=== PATIENT | male | born 1960 | race Caucasian/White ===

== ENCOUNTER 2021-08-22 06:29 | Observation (INO) ==
--- NOTE | 2021-08-14 14:57 | PAT Medication Instructions ---
Medication Instructions Date of Service August 14, 2021 Home Medications Cream For Knee 1 dose EXT UD meloxicam 7.5 mg tablet 7.5 mg PO DAILY PRN ASK your surgeon for instructions meloxicam 7.5 mg tablet 7.5 mg PO DAILY PRN STOP taking 24 hours before surgery Cream For Knee 1 dose EXT UD Other Notes NOTHING TO EAT OR DRINK AFTER MIDNIGHT. If you have any questions please call us at [phone] or [phone] or [phone] or [phone]
--- NOTE | 2021-08-15 13:12 | Anesthesiology Consultation ---
Date of Service August 15, 2021 Assessment & Plan (1) Encounter for pre-operative examination: - Patient states plan per his discussion with surgeon's office is to stay overnight and if situation were to change regarding COVID 19 levels/OR limitations may consider outpatient joint. Case discussed with Dr. Bradford who advised no additional evaluation or testing needed overall and in review of pre-op EKG and to further review outpatient joint eligibility if requested in future by surgeon and patient. - COVID screening: Per assessment on 08/15/2021: Travel screen negative, no known COVID-19 positive contacts or current COVID-19 related symptoms in past 2 weeks. Patient vaccinated. Surgeon arranging preop COVID testing, scheduled 08/27/2021. Awaiting results. Chart Review Chart Review: Acceptable Risk for Surgery and Patient seen in Pre Admission Testing Teaching & Discussion Pre-Anesthesia Teaching/Discussion Notes: Instructed NPO after midnight before surgery, except medications with 15 cc of water. Medication instructions provided according to the PAT guidelines. History Surgery Operation Date: 08/22/21 10:40 Proposed Procedures p Right Total Knee Arthroplasty - Chip Luther MD s Removal Deep Hardware - Chip Luther MD Height/Weight Height: 5 ft 9 in Weight: 97.4 kg Allergies Allergy/AdvReac Type Severity Reaction Status Date / Time No Known Allergies Allergy Verified 08/14/21 14:04 Medications Home Medications Medication Instructions Recorded Confirmed Last Taken Cream For Knee 1 dose EXT UD 05/23/21 08/14/21 Unknown meloxicam 7.5 mg tablet 7.5 mg PO DAILY PRN 05/23/21 08/14/21 Unknown Past Medical History Medical History Arthritis High cholesterol BORDERLINE/NO MEDS Jaw clicking NO LOCKING Patient denies h/o stroke, seizures, heart attack, heart failure, DM, HTN, blood clots or blood transfusions. Exercise / Class Metabolic Activity II 4-5 Yardwork/Stairs/Walk up hill (denies CP or SOB with 1 FOS) Past Family History Family History Father Family hx of colon cancer Other No family history of adverse response to anesthesia Past Surgical History Surgical History H/O tooth extraction History of colonoscopy History of repair of ACL RT History of surgery on upper extremity RT BICEP TENDON REPAIR History of tonsillectomy Past Anesthesia History No Hx of Anesthesia Complications and No Family Hx of Anesthesia Complications History of PONV No Hx of PONV and No Hx of Motion Sickness Social History Smoking Status: Former smoker tobacco type: cigarettes Do You Dip or Chew Tobacco: No Smoking End Date: 15 years ago Hx Alcohol Use: Yes Alcohol type: beer alcohol intake frequency: a few times a month substance use type: does not use Review of Systems Patient denies chest pain, shortness of breath, dyspnea on exertion, snoring, witnessed apneas, reflux, fever, chills, cough, wheezing, or palpitations. Physical Exam Vital Signs Vitals BP 107/71 P 78 TEMP 97.8 SP02 96% on RA RESP 17 Physical Full cervical extension range of motion without pain Full TMJ range of motion TMD 3 finger breaths Mallampati Score 2 Dentition: intact, implant-right lower side and one cap-left upper back; denies chipped or loose teeth, or bridges Lungs: normal respiratory effort. Clear throughout to auscultation, no adventitious breath sounds Cardiac: regular rate and rhythm, no murmurs noted Carotid arteries: negative bruit bilat Extremities: no distal extremity edema Lab Results Anesthesia Preop Results Results Anesthesia Widget: WBC 5.99 K/uL (4.8-10.8) 08/15/21 Hgb 16.5 g/dL (14.0-18.0) 08/15/21 Hct 47.7 % (42-52) 08/15/21 Plt 244 K/uL (130-400) 08/15/21 Na 139 mmol/L (136-145) 08/15/21 K 4.8 mmol/L (3.5-5.1) 08/15/21 Cl 104 mmol/L (98-107) 08/15/21 CO2 30 mmol/L (21-32) 08/15/21 BUN 15 mg/dl (6-23) 08/15/21 Creat 0.97 mg/dl (0.6-1.4) 08/15/21 Glucose Level 96 mg/dl (70-99(Fasting)) 08/15/21 PT 10.3 Seconds (9.0-12.0) 08/15/21 PTT 29.2 Seconds (21.0-31.0) 08/15/21 INR 1.0 (0.9-1.1) 08/15/21 Urine Color Yellow 08/15/21 Urine Appearance Clear (Clear) 08/15/21 Urine pH 5.5 (4.5-7.5) 08/15/21 Urine Specific [place] 1.021 (1.000-1.030) 08/15/21 Urine Protein Negative (Negative) 08/15/21 Urine Glucose (UA) Negative (Negative) 08/15/21 Urine Ketones Negative (Negative) 08/15/21 Urine Blood Negative (Negative) 08/15/21 Urine Nitrite Negative (Negative) 08/15/21 Urine Bilirubin Negative (Negative) 08/15/21 Urine Urobilinogen Negative (Negative) 08/15/21 Urine Leukocyte Esterase Negative (Negative) 08/15/21 Blood Type A Positive 08/15/21 Antibody Screen NEGATIVE 08/15/21 Testing Electrocardiogram Date: 08/15/21 Poor data quality Rate 84 bpm Low voltage QRS Left anterior fascicular block Nonspecific ST abnormality Left anterior fascicular block now present in comparison to 2006 ECG Chest X-Ray Date: 08/15/21 FINDINGS: No lines and tubes are seen. The cardiomediastinal silhouette is normal. The lungs are clear. No evidence of pleural effusion or pneumothorax. IMPRESSION: No acute chest disease.
--- NOTE | 2021-08-20 07:58 | History & Physical Report ---
Date of Service August 20, 2021 Assessment & Plan (1) Right knee DJD: Plan: Postoperative prescriptions for Percocet and Coumadin will be provided at discharge from the hospital. Anticipate discharge to home with home health services. This will be done under 23-hour observation, unless beds are not available and then he will consider outpatient total joint surgery. The patient has an appointment to see his PCP for medical clearance. PDMP was checked and there are no concerning findings. He is aware of the COVID-19 risks associated with surgery. He is currently asymptomatic of any COVID-19 symptoms. He will obtain nasal swab testing on Friday prior to surgery. He has an appointment with PAT today for preoperative lab work, EKG, and chest x-ray. Followup appointment has been made for September 06 at 11:30 a.m. for staple removal. History of Present Illness Chief Complaint: Right knee pain Primary Care Provider: Fabi Ackerman DO This 61-year-old male presents for his preoperative history and physical. He is scheduled to undergo a right knee total knee arthroplasty with removal of deep hardware on 08/22/2021. The patient has had right knee pain for over 5 years. It has become worse with time. He has tried cortisone injections as well as viscosupplementation injections without improvement. Pain is worse with weightbearing. It is affecting his ADLs. No numbness or tingling. He has frequent night pain. No recent trauma. He continues to operate heavy equipment. Preoperative imaging has been obtained. Allergies Allergy/AdvReac Type Severity Reaction Status Date / Time No Known Allergies Allergy Verified 08/14/21 14:04 Home Medications Medication Instructions Recorded Confirmed Type Cream For Knee 1 dose EXT UD 05/23/21 08/14/21 History meloxicam 7.5 mg tablet 7.5 mg PO DAILY PRN 05/23/21 08/14/21 History Past Med/Surg History Medical History Arthritis High cholesterol BORDERLINE/NO MEDS Jaw clicking NO LOCKING Surgical History H/O tooth extraction History of colonoscopy History of repair of ACL RT History of surgery on upper extremity RT BICEP TENDON REPAIR History of tonsillectomy Family History Father Family hx of colon cancer Other No family history of adverse response to anesthesia Social History (Updated 08/20/21 @ 07:55 by Juancho Wallace PA-C) Smoking Status: Former smoker Second Hand Exposure: No; Hx Alcohol Use: Yes Alcohol type: beer Preferred Language: Upper Sorbian Communication Ability: Effective Patrol Man Required: No Beliefs That Will Affect Care: None marital status: Single Current Living Situation: Family Current Living Situation Comment: MOTHER AND FATHER LIVES WITH PATIENT Feels Safe at Home: Yes Assistive Devices: Glasses Review of Systems Review of Systems: All systems reviewed & are unremarkable except as noted in HPI & below A total of 10 systems were reviewed Physical Exam Physical Exam: Vitals: Height 174.4 cm, weight 98.0 kilograms, BMI 32.2, temperature 36.5, BP 114/80, respirations 16, O2 sat 98% on room air. General: Well-developed, well-nourished middle-aged male in no acute distress. Sitting in a chair. Alert and oriented. Skin: Warm and dry with good turgor. No rashes or lesions. No ecchymosis or erythema. HEENT: Normocephalic, atraumatic. Eyes: PERRLA, EOMI. Nares and oropharynx exams deferred due to COVID precautions. Heart: RRR. No MGR. Lungs: Clear to auscultation bilaterally. No crackles, rhonchi or wheezing. Good air movement. Abdomen: Mildly obese. Bowel sounds present x4, soft, nontender. No organomegaly. No masses. Musculoskeletal: Right knee evaluation reveals no intraarticular effusion. No redness or warmth. Obvious varus deformity. There is some thickening about the knee consistent with osteophytes. Full terminal extension. Flexion to just over 90 degrees. Strength is 5/5 with good quad tone. He has focal pain with palpation over the medial joint line. No lateral joint line discomfort with palpation today. Stable collateral ligaments. No defect in the patellar tendon or quadriceps tendon. He is ambulating with an antalgic gait. Neurologic: Gross sensation is intact across the right leg by soft touch. Peripheral pulses are 2+. Results & Data Results & Data ([facility]) Diagnostic Findings Radiographic imaging previously obtained shows end-stage DJD of the right knee. Varus alignment. Significant medial compartment collapse. There is subluxation of the tibia laterally. Old ACL screws are in the tibia and femur. No evidence of fracture. Code Status & VTE Plan VTE Prophylaxis Plan VTE Prophylaxis will be ordered: Yes
--- NOTE | 2021-08-22 06:23 | History & Physical Bridge Note ---
Date of Service August 22, 2021 History & Physical Bridge Note I have examined the patient, reviewed the History & Physical and in the interval since the performance of the History & Physical I have noted the following changes of clinical significance: consent obtained/site verified/covid screen negative.no changes noted
[~2021-08-22 06:29] MED LIST: LR 500ML BOLUS, THEN 15ML/HR IV SCH; LR 60ML/HR IV SCH; ROPIVACAINE 0.5% HCL/PF 150 MG, BUPIVACAINE 0.75% MPF 20 ML, EPINEPHrine 0.15 MG, Ketor... INFIL SCH; TRANEXAMIC ACID 1,000 MG **IV Pre-op IV SCH; ceFAZolin 2000MG 2,000 MG/15 ML SYR IV SCH
[2021-08-22] MEDS ORDERED: BUPIVACAINE 0.25% 30 ML VIAL ONE (06:35)
[2021-08-22] MEDS ORDERED: BUPIVACAINE 0.5 % 5 MG/1 ML PF 10ML VIAL ONE (06:35)
[2021-08-22] MEDS ORDERED: MIDAZOLAM HCL 1 MG/ML 2ML VIAL ONE (07:12)
[2021-08-22] MEDS ORDERED: PROPOFOL IV EMULSION 10 MG/ML 20 ML VIAL IV ONE (08:32)
[2021-08-22] MEDS ORDERED: LIDOCAINE 2% 2 ML VIAL/AMP(20MG/ML) INFIL ONE (08:32)
[2021-08-22] MEDS ORDERED: ORTHO JOINT ANESTHETIC ONE (08:36)
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
[2021-08-22] MEDS ORDERED: PHENYLEPHRINE 100MCG/ML 5ML SYR ONE (09:43)
[2021-08-22] MEDS ORDERED: ePHEDrine sulfate 50 MG/ML AMP IV PRN (10:47)
[2021-08-22] MEDS ORDERED: fentaNYL citrate 100 MCG/2 ML VIAL IV PRN (10:47)
[2021-08-22] MEDS ORDERED: ATROPINE SULFATE 0.1 MG/ML 10ML SYR IV PRN (10:47)
[2021-08-22] MEDS ORDERED: ONDANSETRON INJ 2 MG/ML 2 ML VIAL IV PRN ×2 (10:47→11:58)
--- NOTE | 2021-08-22 10:51 | Post Operative Brief Note ---
Immediate Post Op Note v1 Date of Surgery August 22, 2021 Pre & Post Diagnosis Operation Date: 08/22/21 08:50 Pre-Op Diagnosis: Right Knee Osteoarthritis Post-Op Diagnosis: Right Knee Osteoarthritis I identified the patient and participated in the time-out.: Yes Procedure Operation Date: 08/22/21 08:50 Actual Procedures p Right Total Knee Arthroplasty with removal of hardware(Right) - Chip Luther MD Surgeon Chip Luther MD [facility] Estimated Blood Loss 75 Findings Consistent with Post-Op Diagnosis
--- NOTE | 2021-08-22 10:56 | Operative Report ---
Post Operative Report Pre & Post Diagnosis Operation Date: 08/22/21 08:50 Pre-Op Diagnosis: Right Knee Osteoarthritis Post-Op Diagnosis: Right Knee Osteoarthritis I identified the patient and participated in the time-out.: Yes Procedure Operation Date: 08/22/21 08:50 Actual Procedures p Right Total Knee Arthroplasty with removal of hardware(Right) - Chip Luther MD Surgeon FEDERICO Luther MD Document Control Supervisor Madison LEAL Estimated Blood Loss 75 Findings Consistent with Post-Op Diagnosis see operative report Specimens see operative report Drains none Complications none Disposition Accompanied Patient To Recovery: Yes Indications This 61-year-old male presented to the office with complaints of intractable right knee pain. He had tried conservative care measures without improvement. He elected to proceed with surgical intervention after being educated about potential risks and outcomes. Preoperative imaging was obtained. Description of Procedure Patient was administered a spinal anesthetic and then taken to the operating room where he was given sedation. He was prepped and draped in the usual sterile fashion. Please see Dr. Luther's operative report for specifics of the procedure. I was present for the entire case from initial patient positioning through final wound closure. Assistance was provided in tissue retraction, hemostasis, trial implant placement, final implant placement, and final wound closure. Patient was taken to the recovery room in satisfactory condition. I attest to the content of the Intraoperative Record and any orders documented therein. Any exceptions are noted below.
--- NOTE | 2021-08-22 11:13 | XRay Report ---
RIGHT KNEE 2 VIEWS History: Right total knee arthroplasty. Degenerative arthritis. Postop. FINDINGS: The patient is status post a right total knee arthroplasty. The hardware is intact. No frac ture or dislocation. Skin suzie are in place. IMPRESSION: Right total knee arthroplasty. No evidence for hardware complication. ACT 112: Negative or not required by law. Electronically signed by: Casper So M.D. 08/22/2021 11:12 AM
--- NOTE | 2021-08-22 11:30 | Progress Notes ---
DATE OF SERVICE: 08/22/2021 SUBJECTIVE: Postop check status post right total knee replacement and removal of hardware. The ivy ent is doing well, is breathing comfortably. Denies chest pain, shortness of breath, fever, chills, nausea, vomiting or headache. OBJECTIVE: Neurovascular check reveals some early movement of his foot and ankle, the spinal is wear ing off. His wound dressing is clean, dry and intact. Calves are nontender. Postoperative x-rays, AP and lateral of the knee looked excellent. ASSESSMENT: Doing well status post right knee replacement. PLAN: At this point, continue postop care pathway. He can be full weightbearing. DVT prophylaxis pe r protocol. Job ID: [id number]
--- NOTE | 2021-08-22 11:30 | Operative Report (OR) ---
DATE OF PROCEDURE: 08/22/2021. SURGEON: Chip Luther MD BODY PAINTER: Juancho Wallace PA-C PREOPERATIVE DIAGNOSIS: Osteoarthritis with flexion varus deformity, retained hardware, right knee. POSTOPERATIVE DIAGNOSIS: Osteoarthritis with flexion varus deformity, retained hardware, right knee. OPERATION PERFORMED: Right knee cemented total knee replacement, removal of hardware x2, femur and tibia. SUMMARY OF IMPLANTS: Size 5 right femur, size 5 mobile bearing tray, size 5 insert 12.5 mm thick posterior cruciate substituting oval dome, 3 peg patella, two bags of Palacos G cement. ESTIMATED BLOOD LOSS: 75 mL. CRYSTALLOID: Per anesthesia. BONE PATHOLOGY: Pending. PERIOPERATIVE SITUATION: Medically cleared male with intractable pain in his knee, has flexion varus deformity. Has a history of having an ACL surgery reconstruction done over 27 years ago. At this point in time, his x-rays reveal end-stage disease, lateral tibial subluxation, tricompartmental osteoarthritis, severe flexion deformity. DESCRIPTION OF PROCEDURE: The patient was appropriately identified, site verified, consent verified. Antibiotics were confirmed as being given. The old incision was opened and then extended proximally. Parapatellar arthrotomy was performed. He had extensive synovitis and extensive osteophytes, this was all resected. The notch was obliterated. Osteophytes resected. The remnant of the ACL and the PCL were resected. Posterior osteophytes were resected. The distal femur was then resected 14 mm. The proximal tibia was then resected 4 mm off the high side and revised two more millimeters. The extension gap was then excellent. The tibia was sized to a 5, the femur to between a 6 and a 5, was measured 6, cut 5. No significant notching occurred. The flexion gap was checked, it was excellent. The posterior capsule was then injected with Orthomix and then the box cut made, the size 5 fit well. The tibia was then broached and reamed to a size 5 and it fit well. The patella tracked well. The patella was then resected leaving 16 mm. A 41 button was then trialed. After holes were made, it tracked well. Orthomix was then injected all about the knee. All trial implants were then removed and the wound irrigated with Betadine and Pulsavac, and then the permanent cemented into position, tibia, femur, and patella in that order. After 12 minutes, the tourniquet was deflated. Minor bleeding points were controlled with electrocautery. There was significant scarring and bursitis medially. This was resected. At one point, this got closer to skin, so at the end of the case this area was resected and repaired. Once the cement cured at 14 minutes, the knee was inspected. No cement removal was required. Some bone wax was used to cover up some of the raw bone. The wound was irrigated with Betadine Pulsavac, the permanent liner then seated. The knee reduced and closed at 40 degrees of flexion using #2-0 Vicryl and stainless steel clips. The area where the resection of the bursa was made and the skin question was closed with one stitch of 2-0 Vicryl and 2 suzie. The wound was then dressed appropriately with Adaptic, 4 x 4 gauze, ABD pads, Webril, and double 6-inch All bandages. EBL again was roughly 75 mL. Crystalloid per anesthesia. Bone pathology pending on bone. DVT prophylaxis per protocol. SUMMARY OF IMPLANTS: Size 5 right posterior cruciate substituting femur, size 5 mobile bearing tray tibia, size 5 x 12.5 mm posterior cruciate substituting insert, oval dome, 3 peg patella, size 41, two bags of Palacos G cement. I tried to call daughter, Blake, at [phone], no answer. Left message. Job ID: [id number] [facility]
[2021-08-22] MEDS ORDERED: NALOXONE HCL 0.4 MG/1 ML VIAL/CARP IV PRN (11:58)
[2021-08-22] MEDS ORDERED: METOCLOPRAMIDE HCL INJ 5 MG/ML 2 ML VIAL IV PRN (11:58)
[2021-08-22] MEDS ORDERED: HYDROmorphone INJ 0.5 MG/0.5 ML SYR IV PRN (11:58)
[2021-08-22] MEDS ORDERED: ALUMINUM/MAGNESIUM SUSP 30 ML UDC PO PRN (11:58)
[2021-08-22] MEDS ORDERED: diphenhydrAMINE 50 MG/ML VIAL IV PRN (11:58)
[2021-08-22] MEDS ORDERED: oxyCODONE HCL IR 5 MG TAB (IMMEDIATE RELEASE) PO PRN (11:58)
[2021-08-22] MEDS ORDERED: MAGNESIUM HYDROXIDE SUSP 30 ML UDC PO PRN (11:58)
[2021-08-22] MEDS ORDERED: TAMSULOSIN HCL 0.4 MG CAP PO PRN (11:58)
[2021-08-22] MEDS ORDERED: bisacodyL 10 MG SUPP PR PRN (11:58)
--- NOTE | 2021-08-22 12:10 | Anesthesiology Progress Note ---
Date of Service August 22, 2021 Anesthesia Post Procedure Vital Signs Vital Signs: Temp Pulse Pulse Resp BP Pulse Ox 08/22/21 11:50 36.6 C 65 21 111/76 95 08/22/21 11:40 36.6 C 62 21 113/74 97 08/22/21 11:30 65 16 110/79 98 08/22/21 11:20 68 22 118/85 100 08/22/21 11:10 69 21 107/81 100 08/22/21 11:00 77 16 98/70 L 98 08/22/21 10:54 36.0 C L 86 21 99/67 L 97 08/22/21 06:48 36.7 C 92 H 18 122/90 97 Pain Intensity Right Knee: Pain Intensity: 0 Transfer of Care Handoff Completed per policy Notes Mental Status: alert / awake / arousable Patient Amnestic to Procedure: Yes Nausea / Vomiting: adequately controlled Pain: adequately controlled Airway Patency, RR, SpO2: stable & adequate BP & HR: stable & adequate Hydration State: stable & adequate Neuraxial Anesthesia: was administered and sensory block is resolving Anesthetic Complications: no major complications apparent and Pt Satisfied with anesthetic care
[2021-08-22] MEDS: SODIUM CHLORIDE 0.9% 1000ML 1,000 ML IV SCH ×2 (13:23→22:09)
[2021-08-22] MEDS: KETOROLAC 30 MG/ML VIAL IV SCH ×2 (13:23→18:36)
[2021-08-22] MEDS: ACETAMINOPHEN 500 MG TAB PO SCH ×2 (14:29→22:54)
[2021-08-22] MEDS: ORTHO WARFARIN NOMOGRAM SCH (14:34)
[2021-08-22] MEDS ORDERED: WARFARIN SOD 5 MG TAB PO ONE (16:00)
[2021-08-22] MEDS: ASCORBIC ACID 500 MG TAB PO SCH (16:45)
[2021-08-22] MEDS: ceFAZolin 2000MG 2,000 MG/15 ML SYR IV SCH (16:47)
[2021-08-22] MEDS: FERROUS GLUCONATE 324 MG TAB PO SCH (16:47)
[2021-08-22] MEDS ORDERED: TRANEXAMIC ACID / 0.7% NACL 1,000 MG/100 ML BAG IV SCH (17:00)
[2021-08-22] MEDS: DOCUSATE SODIUM 100 MG CAP PO SCH (20:17)
[2021-08-22] MEDS ORDERED: SENNA 8.6 MG TAB PO SCH (21:00)
[2021-08-23] MEDS: KETOROLAC 30 MG/ML VIAL IV SCH ×2 (00:55→05:53)
[2021-08-23] MEDS: ceFAZolin 2000MG 2,000 MG/15 ML SYR IV SCH (01:05)
[2021-08-23] MEDS: ACETAMINOPHEN 500 MG TAB PO SCH (05:51)
[2021-08-23] MEDS: ASCORBIC ACID 500 MG TAB PO SCH (07:12)
[2021-08-23] MEDS: FERROUS GLUCONATE 324 MG TAB PO SCH (07:12)
[2021-08-23] MEDS: DOCUSATE SODIUM 100 MG CAP PO SCH (07:12)
--- NOTE | 2021-08-23 07:42 | Progress Notes ---
SUBJECTIVE: Postop check status post right total knee replacement. He is doing well. Denies chest pain, shortness of breath, fever, chills, nausea, vomiting or headach e. OBJECTIVE: Vital signs are stable. He is afebrile. Neurovascular check, femoral sciatic nerve is normal. Wound dressing clean, dry and intact. I advised concerning heel roll to extend his knee better. ASSESSMENT AND PLAN: Doing well. Discharged to home today after PT/OT. Dressing changed by physici an assistant merchandise manager. Coumadin per nomogram. Please make sure he has all his prescriptions. Job ID: [id number]
[2021-08-23] MEDS ORDERED: dexAMETHasone 10 MG in SYRINGE 0 ML IV SCH (08:00)
[2021-08-23 08:10] LABS: Hematocrit (blood only) 36.7 % (42-52); Hemoglobin 12.9 g/dL (14.0-18.0); Mean Corpuscular Hemoglobin 30.4 pg (25-34); Mean Corpuscular Hgb Conc 35.1 g/dL (32-36); Mean Corpuscular Volume 86.4 fL (80-100); Mean Platelet Volume 9.1 fL (7.4-10.4); Platelet Count 247 K/uL (130-400); RDW Coefficient of Variation 12.5 % (11.5-14.5); RDW Standard Deviation 39.5 fL (36.4-46.3); Red Blood Count 4.25 M/uL (4.7-6.1); White Blood Count 12.18 K/uL (4.8-10.8)
[2021-08-23 08:15] LABS: INR 1.1 (0.9-1.1); Prothrombin Time 11.4 Seconds (9.0-12.0)
[2021-08-23] MEDS: ORTHO WARFARIN NOMOGRAM SCH (08:23)
[2021-08-23] MEDS ORDERED: WARFARIN SOD 5 MG TAB PO ONE (08:30)
[2021-08-23 08:34] LABS: BUN Creatinine Ratio 25.6 (10-20); Calcium 7.9 mg/dl (8.5-10.1); Creatinine Clr Calc Pharmacy 95.6 ml/min; Est GFR (Non-African American) 90.6 ml/min; Potassium 3.9 mmol/L (3.5-5.1)
[2021-08-23] MEDS ORDERED: MULTIVITAMIN TAB PO SCH (09:00)
== END 2021-08-23 11:32 | disposition home health service (06) ==
LOC: ASU 06:29 → 3E 06:29

== ENCOUNTER 2022-05-15 06:57 | Observation (INO) ==
--- NOTE | 2022-05-07 10:33 | Anesthesiology Consultation ---
Date of Service May 07, 2022 Assessment & Plan (1) Encounter for pre-operative examination: - pt contacted and he states is not actively on anticoagulation and states warfarin was Rx by surgeon for post-op. - outpatient joint assessment: previously discussed with Dr. Bradford and he advised to further review outpatient joint eligibility if requested in future by surgeon and patient. - medical clearance 04/19/22: "...preop if preop studies are unremarkable then ok to proceed with surgery...ok..." - COVID screening: Per director of group sales on 05/07/2022: Travel screen negative, no known COVID-19 positive contacts or current COVID-19 related symptoms in past 2 weeks. To surgeon's discretion if preop COVID testing is needed. Chart Review Chart Review: Acceptable Risk for Surgery and Patient NOT seen in Pre Admission Testing History Surgery Operation Date: 05/15/22 09:00 Proposed Procedures p Left Total Knee Arthroplasty - Chip Luther MD Height/Weight Height: 5 ft 9 in Weight: 97.522 kg Allergies Allergy/AdvReac Type Severity Reaction Status Date / Time No Known Allergies Allergy Verified 05/07/22 09:18 Medications Home Medications Medication Instructions Recorded Confirmed Last Taken oxycodone-acetaminophen 5 mg-325 2 tab PO Q6H PRN pain #24 tabs 08/22/21 05/07/22 Unknown mg tablet (Percocet) warfarin 2 mg tablet 4 mg PO DAILY #60 tabs 08/22/21 05/07/22 Unknown docusate sodium 100 mg capsule 100 mg PO BID PRN Pain 05/07/22 05/07/22 Unknown Past Medical History Medical History (Updated 05/07/22 @ 10:27 by Opal Hussein PA-C) Arthritis High cholesterol BORDERLINE/NO MEDS Jaw clicking NO LOCKING Past Family History Family History Father Family hx of colon cancer Other No family history of adverse response to anesthesia Past Surgical History Surgical History (Updated 05/07/22 @ 10:27 by Opal Hussein PA-C) H/O tooth extraction History of colonoscopy History of repair of ACL RT History of surgery on upper extremity RT BICEP TENDON REPAIR History of tonsillectomy History of total right knee replacement 08/22/21 SAB at L3 1 attempt + PNB. Social History Smoking Status: Former smoker tobacco type: cigarettes Do You Dip or Chew Tobacco: No Smoking End Date: 20 yrs ago Hx Alcohol Use: Yes Alcohol type: beer alcohol intake frequency: a few times a month Hx Substance Use: No substance use type: does not use Lab Results Anesthesia Preop Results Results Anesthesia Widget: WBC 5.90 K/ul (4.8-10.8) 04/29/22 Hgb 15.9 g/dl (14.0-18.0) 04/29/22 Hct 46.2 % (40.1-51.0) 04/29/22 Plt 241 K/uL (130-400) 04/29/22 Na 138 mmol/L (136-145) 04/29/22 K 4.1 mmol/L (3.5-5.1) 04/29/22 Cl 104 mmol/L (98-107) 04/29/22 CO2 29 mmol/L (21-32) 04/29/22 BUN 21 mg/dl (6-23) 04/29/22 Creat 0.91 mg/dl (0.6-1.4) 04/29/22 Glucose Level 94 mg/dl (70-99(Fasting)) 04/29/22 PT 10.9 Seconds (9.0-12.0) 04/29/22 PTT 29.7 Seconds (21.0-31.0) 04/29/22 INR 1.0 (0.9-1.1) 04/29/22 Urine Color Yellow 04/29/22 Urine Appearance Clear (Clear) 04/29/22 Urine pH 6.0 (4.5-7.5) 04/29/22 Urine Specific [place] 1.023 (1.000-1.030) 04/29/22 Urine Protein Negative (Negative) 04/29/22 Urine Glucose (UA) Negative (Negative) 04/29/22 Urine Ketones Negative (Negative) 04/29/22 Urine Blood Negative (Negative) 04/29/22 Urine Nitrite Negative (Negative) 04/29/22 Urine Bilirubin Negative (Negative) 04/29/22 Urine Urobilinogen Negative (Negative) 04/29/22 Urine Leukocyte Esterase Negative (Negative) 04/29/22 Testing Electrocardiogram Date: 08/20/21 Sinus rhythm, rate 77 bpm Low voltage in limb leads Chest X-Ray Date: 08/15/21 No lines and tubes are seen. The cardiomediastinal silhouette is normal. The lungs are clear. No evidence of pleural effusion or pneumothorax. IMPRESSION: No acute chest disease.
--- NOTE | 2022-05-14 18:22 | History & Physical Bridge Note ---
Date of Service May 14, 2022 History & Physical Bridge Note I have examined the patient, reviewed the History & Physical and in the interval since the performance of the History & Physical I have noted the following changes of clinical significance: no changes noted
[~2022-05-15 06:57] MED LIST changes: +BUPIVACAINE 0.5 % 5 MG/1 ML PF 10ML VIAL ONE; +ROPIVACAINE 0.5% 5 MG/ML 30 ML VIAL ONE
[2022-05-15] MEDS ORDERED: MIDAZOLAM HCL 1 MG/ML 2ML VIAL ONE ×2 (07:58→07:59)
[2022-05-15] MEDS ORDERED: fentaNYL citrate 100 MCG/2 ML VIAL ONE ×2 (07:59→09:42)
[2022-05-15] MEDS ORDERED: ePHEDrine sulfate 50 MG/ML AMP IV PRN (08:18)
[2022-05-15] MEDS ORDERED: ATROPINE SULFATE 0.1 MG/ML 10ML SYR IV PRN (08:18)
[2022-05-15] MEDS ORDERED: ONDANSETRON INJ 2 MG/ML 2 ML VIAL IV PRN ×2 (08:18→12:52)
--- NOTE | 2022-05-15 08:46 | History & Physical Bridge Note ---
Date of Service May 15, 2022 History & Physical Bridge Note I have examined the patient, reviewed the History & Physical and in the interval since the performance of the History & Physical I have noted the following changes of clinical significance:consent obtained. no changes noted
[2022-05-15] MEDS ORDERED: ORTHO JOINT ANESTHETIC ONE (09:00)
--- NOTE | 2022-05-15 09:25 | Discharge Summary (DS) ---
DATE OF ADMISSION: 05/15/2022. DATE OF POTENTIAL DISCHARGE: 05/16/2022. CHIEF COMPLAINT: Left knee pain. HISTORY OF PRESENT ILLNESS: The patient underwent elective left total knee replacement. At present, hospital course remains uncomplicated. PAST MEDICAL HISTORY: Remarkable for osteoarthritis, history of ACL surgery on the right, tonsillect sagar. FAMILY HISTORY: Noncontributory. SOCIAL HISTORY: Noncontributory. ALLERGIES: None. CURRENT MEDICATIONS: None. REVIEW OF SYSTEMS: Noncontributory. ASSESSMENT: Status post left total knee replacement. Discharge to home when meets clinical criteria . Job ID: [id number]
[2022-05-15] MEDS ORDERED: PROPOFOL IV EMULSION 10 MG/ML 20 ML VIAL IV ONE (09:33)
[2022-05-15] MEDS ORDERED: LIDOCAINE 2% 20 MG/ML 5 ML SYR IV ONE (09:33)
[2022-05-15] MEDS ORDERED: ONDANSETRON INJ 2 MG/ML 2 ML VIAL ONE (09:33)
[2022-05-15] MEDS ORDERED: KETAMINE 50 MG/5 ML SYRINGE ONE (09:40)
[2022-05-15] MEDS ORDERED: GLYCOPYRROLATE 0.2 MG/ML VIAL ONE (09:42)
--- NOTE | 2022-05-15 10:58 | Post Operative Brief Note ---
Immediate Post Op Note v1 Date of Surgery May 15, 2022 Pre & Post Diagnosis Operation Date: 05/15/22 08:50 Pre-Op Diagnosis: Left Knee Degenerative Joint Diseaes Post-Op Diagnosis: Left Knee Degenerative Joint Diseaes I identified the patient and participated in the time-out.: Yes Procedure Operation Date: 05/15/22 08:50 Actual Procedures p Left Total Knee Arthroplasty(Left) - Chip Luther MD Surgeon Chip Luther MD Hotel Services Supervisor Toni/Madison/Thomas(MS-2) Estimated Blood Loss 75 Findings Consistent with Post-Op Diagnosis
[2022-05-15] MEDS: fentaNYL citrate 100 MCG/2 ML VIAL IV PRN ×4 (11:15→11:54)
--- NOTE | 2022-05-15 11:18 | Operative Report ---
Post Operative Report Pre & Post Diagnosis Operation Date: 05/15/22 08:50 Pre-Op Diagnosis: Left Knee Degenerative Joint Diseaes Post-Op Diagnosis: Left Knee Degenerative Joint Diseaes I identified the patient and participated in the time-out.: Yes Procedure Operation Date: 05/15/22 08:50 Actual Procedures p Left Total Knee Arthroplasty(Left) - Chip Luther MD Surgeon FEDERICO Luther MD Horse Racetrack Manager Toni/Madison/Thomas(MS-2) Estimated Blood Loss 75 Findings Consistent with Post-Op Diagnosis see operative report Specimens see operative report Drains none Complications none Disposition Accompanied Patient To Recovery: Yes Indications This 62 year old male presented to the office with complaints of persisting left knee pain. He had tried conservative care measures without improvement. He elected to proceed with surgical intervention after being educated about potential risks and outcomes. Preoperative imaging was obtained. Description of Procedure Patient was administered a spinal anesthetic and then taken to the operating room where he was given sedation. He was prepped and draped in the usual sterile fashion. Please see Dr. Luther's operative report for specifics of the procedure. I was present for the entire case from initial patient positioning through final wound closure. Assistance was provided in tissue retraction, hemostasis, trial implant placement, final implant placement, and final wound closure. Patient was taken to the recovery room in satisfactory condition. I attest to the content of the Intraoperative Record and any orders documented therein. Any exceptions are noted below.
--- NOTE | 2022-05-15 11:31 | Operative Report (OR) ---
DATE OF PROCEDURE: 05/15/2022. SURGEON: Chip Luther MD. CRIPPLE WORKER: Dr. Muñoz, II SECOND CRIPPLE WORKER: Juancho Wallace PA-C. THIRD CRIPPLE WORKER: Thomas, medical student-2. PREOPERATIVE DIAGNOSES: Osteoarthritis with flexion varus deformity, left knee. POSTOPERATIVE DIAGNOSES: Osteoarthritis with flexion varus deformity, left knee. OPERATION PERFORMED: Cemented left total knee replacement. SUMMARY OF IMPLANTS: Size left femur, left posterior cruciate substituting size mobile bearing tray, size 5 x 10 mm insert, posterior cruciate substituting, 41 patella, 2 bags of Palacos G cement. ESTIMATED BLOOD LOSS: 75 mL PATHOLOGY: Pending on bone. CRYSTALLOID: Per anesthesia. DVT prophylaxis per protocol. PERIOPERATIVE SITUATION: Medically cleared male with intractable knee pain, has failed conservative management for an extended period of time, he is in excruciating pain. He wants to proceed with surg ical treatment. He understands the risks and consequences. He had a knee replacement done on [facility] side years ago. DESCRIPTION OF PROCEDURE: The patient was appropriately identified, site verified, consent verified. Antibiotics were confirmed as being given. The left lower extremity was prepped and draped in usua l routine fashion. Tourniquet was inflated to 300 mmHg after exsanguination of the limb with a rubbe r Esmarch bandage for a total of 57 minutes. Midline exposure was utilized. Parapatellar arthrotomy performed. Synovectomy completed, osteophytes resected. Distal femur entered. Cruciates resected. Tibia was subluxated, menisci resected. Distal femur resected 14 mm, proximal tibia 4 mm, the extension gap was excellent. The tibia was siz ed to 4. The femur was sized between a 5 and a 6, it was measured 6, cut 5. Minimal anterior cortic al reach. No significant notching. Anterior, posterior condylar chamfer cuts were then made and once that was done, the flexion gap was checked, it was slightly tight, was released a little bit posteromedially and posterolaterally was good. Posterior injections were then made with the Orthomix. The box cut was then made a size 5 fit well. The tibia was then broached and reamed to a size 5 and with a 10 mm spacer everything was stable. T he knee tracked well. There was no mid range instability. The patella tracked well. The patella was then resected leaving 15 mm. Seating holes made for 41 button and that was then plac ed. It tracked well. All trial implants were then removed. The wound was irrigated with Betadine P ulsavac, and then cemented in position tibia, femur, and patella in that order. At 12 minutes, the t ourniquet deflated at 14 minutes, the knee was flexed. The trial spacer removed. No cement removal was required. The knee was then irrigated. The permanent liner seated, knee reduced and then closed at 40 degrees of flexion with #2 Vicryl, 2-0 Vicryl and stainless steel clips. Appropriate dressing applied. The patient was transferred to recovery room in satisfactory condition, having tolerated t he procedure well. Pathology pending on bone. DVT prophylaxis per protocol. Job ID: [id number]
--- NOTE | 2022-05-15 12:40 | XRay Report ---
TWO VIEWS LEFT KNEE CLINICAL HISTORY: Postoperative examination. FINDINGS: AP and crosstable lateral portable views of the left knee are obtained. A left knee arthrop lasty is in near anatomic alignment. There has been undersurface remodeling of the patella. No acute fracture is seen. There are expected postoperative changes around the knee including skin clips, soft tissue edema, and subcutaneous gas. IMPRESSION: Expected postoperative changes status post left knee arthroplasty. No acute fracture is s een. ACT 112: Negative or not required by law. Electronically signed by: Caden Rush M.D. 05/15/2022 12:38 PM
[2022-05-15] MEDS ORDERED: ALUMINUM/MAGNESIUM SUSP 30 ML UDC PO PRN (12:52)
[2022-05-15] MEDS ORDERED: NALOXONE HCL 0.4 MG/1 ML VIAL/CARP IV PRN (12:52)
[2022-05-15] MEDS ORDERED: METOCLOPRAMIDE HCL INJ 5 MG/ML 2 ML VIAL IV PRN (12:52)
[2022-05-15] MEDS ORDERED: VANCOMYCIN CONSULT ACTIVE PRN (12:52)
[2022-05-15] MEDS ORDERED: HYDROmorphone INJ 0.5 MG/0.5 ML SYR IV PRN (12:52)
[2022-05-15] MEDS ORDERED: SODIUM CHLORIDE 0.9% 1000ML 1,000 ML IV SCH (12:52)
[2022-05-15] MEDS ORDERED: diphenhydrAMINE 50 MG/ML VIAL IV PRN (12:52)
[2022-05-15] MEDS ORDERED: TAMSULOSIN HCL 0.4 MG CAP PO PRN (12:52)
[2022-05-15] MEDS ORDERED: MAGNESIUM HYDROXIDE SUSP 30 ML UDC PO PRN (12:52)
[2022-05-15] MEDS ORDERED: bisacodyL 10 MG SUPP PR PRN (12:52)
[2022-05-15] MEDS: General Order Problem(s) SCH ×2 (13:15→15:06)
[2022-05-15] MEDS ORDERED: ORTHO WARFARIN NOMOGRAM SCH (14:00)
[2022-05-15] MEDS ORDERED: VANCOMYCIN HCL 1,500 MG in SODIUM CHLORIDE 0.9% 500 ML IV ONE (14:00)
--- NOTE | 2022-05-15 14:03 | Anesthesiology Progress Note ---
Date of Service May 15, 2022 Anesthesia Post Procedure Vital Signs Vital Signs: Temp Pulse Pulse Resp BP Pulse Ox O2 Del Method 05/15/22 13:53 86 16 121/76 96 Room Air 05/15/22 13:22 36.5 C 74 16 111/71 96 Room Air 05/15/22 12:52 36.5 C 76 16 114/75 96 Room Air 05/15/22 12:20 57 L 14 100/78 95 Room Air 05/15/22 11:50 36 C L 60 15 122/84 95 Room Air 05/15/22 11:40 70 13 123/86 96 Room Air 05/15/22 11:30 69 15 131/86 98 Oxymask 05/15/22 11:20 59 L 20 115/77 100 Oxymask 05/15/22 11:12 36.2 C L 70 17 122/72 97 Oxymask 05/15/22 07:20 36.9 C 84 20 126/88 95 Room Air O2 Flow Rate 05/15/22 13:53 05/15/22 13:22 05/15/22 12:52 05/15/22 12:20 05/15/22 11:50 05/15/22 11:40 05/15/22 11:30 5 05/15/22 11:20 5 05/15/22 11:12 5 05/15/22 07:20 Pain Intensity Left Knee: Pain Intensity: 3 Transfer of Care Handoff Completed per policy Notes Mental Status: alert / awake / arousable Patient Amnestic to Procedure: Yes Nausea / Vomiting: adequately controlled Pain: adequately controlled Airway Patency, RR, SpO2: stable & adequate BP & HR: stable & adequate Hydration State: stable & adequate Neuraxial Anesthesia: was administered and sensory block is resolving Anesthetic Complications: no major complications apparent and Pt Satisfied with anesthetic care
[2022-05-15] MEDS: ACETAMINOPHEN 500 MG TAB PO SCH ×2 (14:45→21:37)
[2022-05-15] MEDS ORDERED: WARFARIN SOD 5 MG TAB PO SCH (16:00)
[2022-05-15] MEDS: FERROUS GLUCONATE 324 MG TAB PO SCH (16:04)
[2022-05-15] MEDS: ASCORBIC ACID 500 MG TAB PO SCH (16:04)
[2022-05-15] MEDS: KETOROLAC 30 MG/ML VIAL IV SCH ×2 (16:08→21:37)
[2022-05-15] MEDS ORDERED: TRANEXAMIC ACID / 0.7% NACL 1,000 MG/100 ML BAG IV SCH (17:15)
[2022-05-15] MEDS: ceFAZolin 2000MG 2,000 MG/15 ML SYR IV SCH (18:28)
[2022-05-15] MEDS ORDERED: SENNA 8.6 MG TAB PO SCH (21:00)
[2022-05-15] MEDS: DOCUSATE SODIUM 100 MG CAP PO SCH (21:37)
[2022-05-15] MEDS: oxyCODONE HCL IR 5 MG TAB (IMMEDIATE RELEASE) PO PRN (21:38)
[2022-05-16] MEDS: ceFAZolin 2000MG 2,000 MG/15 ML SYR IV SCH (02:03)
[2022-05-16] MEDS: oxyCODONE HCL IR 5 MG TAB (IMMEDIATE RELEASE) PO PRN ×2 (02:12→08:57)
[2022-05-16] MEDS: KETOROLAC 30 MG/ML VIAL IV SCH (05:55)
[2022-05-16] MEDS: ACETAMINOPHEN 500 MG TAB PO SCH (05:58)
--- NOTE | 2022-05-16 06:33 | Progress Notes ---
SUBJECTIVE: Doing well status post left total knee replacement. Denies chest pain, shortness of reva ath, fever, chills, nausea, vomiting, or headache. OBJECTIVE: VITAL SIGNS: Stable. He is afebrile. Neurovascular check femoral sciatic nerve is normal. Wound dressing clean, dry, and intact. Calves nontender. LABORATORY DATA: A.m. labs are pending. ASSESSMENT AND PLAN: Doing well. Discharged home today after PT/OT and dressing changed by PA. Cathy jhaveri dose before he leaves today x1 and then have him initiate his home dose starting tomorrow at 6: 00 p.m. Job ID: [id number]
[2022-05-16] MEDS ORDERED: dexAMETHasone 10 MG in SYRINGE 0 ML IV SCH (08:00)
[2022-05-16] MEDS: ASCORBIC ACID 500 MG TAB PO SCH (08:57)
[2022-05-16] MEDS: FERROUS GLUCONATE 324 MG TAB PO SCH (08:57)
[2022-05-16] MEDS: DOCUSATE SODIUM 100 MG CAP PO SCH (08:57)
[2022-05-16 09:00] LABS: Hematocrit (blood only) 39.7 % (40.1-51.0); Hemoglobin 13.4 g/dl (14.0-18.0); Mean Corpuscular Hemoglobin 29.2 pg (25.0-34.0); Mean Corpuscular Hgb Conc 33.8 g/dL (32.0-36.0); Mean Corpuscular Volume 86.5 fL (80.0-100.0); Mean Platelet Volume 8.9 fL (9.4-12.4); Platelet Count 195 K/uL (130-400); RDW Coefficient of Variation 12.7 % (11.5-14.5); RDW Standard Deviation 39.7 fL (36.4-46.3); Red Blood Count 4.59 M/uL (4.63-6.08); White Blood Count 9.25 K/ul (4.8-10.8)
[2022-05-16] MEDS ORDERED: MULTIVITAMIN TAB PO SCH (09:00)
[2022-05-16 09:09] LABS: INR 1.1 (0.9-1.1); Prothrombin Time 11.6 Seconds (9.0-12.0)
[2022-05-16 09:25] LABS: BUN Creatinine Ratio 24.4 (10-20); Calcium 8.3 mg/dl (8.5-10.1); Creatinine Clr Calc Pharmacy 106.1 ml/min; Est GFR (African American) 108.3 ml/min; Est GFR (Non-African American) 93.5 ml/min; Potassium 3.7 mmol/L (3.5-5.1)
--- NOTE | 2022-05-16 10:07 | Orthopedic Progress Note ---
Date of Service May 16, 2022 Assessment & Plan (1) S/P total knee arthroplasty: Plan: Pt is doing great POD#1 He will be d/c home today with home services He had dressing changed and advised on keeping clean, dry and inplace, if soiled Home health will change on Friday Advised on dosage of warfarin and having PT/INR monitored as discussed. prescription was sent by other provider He was prescribed pain medication, previously sent by other provider advised on taking as directed sparingly Pt will participate in home PT/OT Continue with walker until advised safe to use other device per PT Pt will f/u in the office on 05/30 for suture removal or sooner if needed Advised if any questions/concerns contact office Pt verbalized understanding and is in agreement with plan. Admission and Anticipated Discharge Date Admission Date: May 15, 2022 Subjective Patient is s/p a left total knee arthroplasty POD #1. He was seen bedside this am He is alert and oriented x3. He is in good spirits. He states he has mild pain in the left knee and rates 3/10. He states he has some pain w/ bending but overall feels good. He denies any calf pain. He denies any fever, chills, CP, or SOB. He states he is ready to go home. Review of Systems Review of Systems: Please refer to H&P Physical Exam Physical Exam: General: A&O x3 pleasant Integumentary: Dressing is intact negative for any drainage or soiling. Musculoskeletal: Dressing was removed. Incision is well approximated with suzie. Neg for any drainage or erythema. minimal ecchymosis and edema surr ounding left knee, as anticipated. Neg for any edema in the distal LLE. He is able to flex knee 0-55 degrees. Able to fully PF/DF left ankle. Calf is soft and nontender. DP 3+. Dressing applied, gauze, Kerlix, abd, Keflex and thigh high stocking. LLE is NVI Results & Data ([facility]) Vital Signs (Past 12 Hours) Vital Signs Temp Pulse Pulse Resp BP Pulse Ox O2 Del Method 05/16/22 08:05 36.5 C 66 16 101/66 96 Room Air 05/16/22 03:24 36.6 C 61 15 107/61 96 Room Air 05/15/22 22:10 36.6 C 65 16 109/74 96 Room Air Laboratory Results 05/16/22 05/16/22 05/16/22 Range/Units 08:34 08:34 08:34 WBC (4.8-10.8) K/ul RBC (4.63-6.08) M/uL Hgb (14.0-18.0) g/dl Hct (40.1-51.0) % MCV (80.0-100.0) fL MCH (25.0-34.0) pg MCHC (32.0-36.0) g/dL RDW Std Deviation (36.4-46.3) fL RDW Coeff of Mary (11.5-14.5) % Plt Count (130-400) K/uL MPV (9.4-12.4) fL PT 11.6 (9.0-12.0) Seconds INR 1.1 (0.9-1.1) Sodium 137 (136-145) mmol/L Potassium 3.7 (3.5-5.1) mmol/L Chloride 105 (98-107) mmol/L Carbon Dioxide 27 (21-32) mmol/L Anion Gap 5 (3-11) BUN 20 (6-23) mg/dl Creatinine 0.82 (0.6-1.4) mg/dl Est Cr Clr Drug Dosing 106.1 ml/min Est GFR ( Amer) 108.3 ml/min Est GFR (Non-Af Amer) 93.5 ml/min BUN/Creatinine Ratio 24.4 H (10-20) Glucose 109 H (70-99(Fasting)) mg/dl Calcium 8.3 L (8.5-10.1) mg/dl Hepatitis C Ab (EIA) Pending Hep C Ab Signal/Cutoff Pending 05/16/22 Range/Units 08:34 WBC 9.25 (4.8-10.8) K/ul RBC 4.59 L (4.63-6.08) M/uL Hgb 13.4 L (14.0-18.0) g/dl Hct 39.7 L (40.1-51.0) % MCV 86.5 (80.0-100.0) fL MCH 29.2 (25.0-34.0) pg MCHC 33.8 (32.0-36.0) g/dL RDW Std Deviation 39.7 (36.4-46.3) fL RDW Coeff of Mary 12.7 (11.5-14.5) % Plt Count 195 (130-400) K/uL MPV 8.9 L (9.4-12.4) fL PT (9.0-12.0) Seconds INR (0.9-1.1) Sodium (136-145) mmol/L Potassium (3.5-5.1) mmol/L Chloride (98-107) mmol/L Carbon Dioxide (21-32) mmol/L Anion Gap (3-11) BUN (6-23) mg/dl Creatinine (0.6-1.4) mg/dl Est Cr Clr Drug Dosing ml/min Est GFR ( Amer) ml/min Est GFR (Non-Af Amer) ml/min BUN/Creatinine Ratio (10-20) Glucose (70-99(Fasting)) mg/dl Calcium (8.5-10.1) mg/dl Hepatitis C Ab (EIA) Hep C Ab Signal/Cutoff
== END 2022-05-16 12:22 | disposition home health service (06) ==
LOC: ASU 06:57 → PACUINP 06:57 → 3E 13:12